=== PATIENT | female | born 1930 | race Caucasian/White ===

== ENCOUNTER 2017-07-22 17:55 | Inpatient (IN) | payer OTHER, BC ==
[~2017-07-22] VITALS: Ht 154.9 cm; Wt 61.4 kg
[~2017-07-22 17:55] MED LIST: ACET325T96 PO; ASPI81TA28 PO; DTR5 PO; FENO48TA9 PO; GABA-112 PO; LEVO125T72 PO; MULT-506 PO; SENN-61 PO; TRIA37.5 PO
[2017-07-22] MEDS ORDERED: SODIUM CHLORIDE 0.9% 1000ML 1,000 ML IV STA (18:18)
[2017-07-22] MEDS ORDERED: MULT-513 PO (18:37)
[2017-07-22] MEDS ORDERED: GABA-113 PO (18:37)
[2017-07-22] MEDS ORDERED: PRLSR20 PO (18:37)
[2017-07-22] MEDS ORDERED: LEVO88TA PO (18:37)
[2017-07-22] MEDS ORDERED: CLR10 PO (18:37)
[2017-07-22] MEDS ORDERED: [UNRECOGNIZED DRUG - CODE] PO (18:37)
[2017-07-22] MEDS ORDERED: ACET1TAB84 PO (18:39)
[2017-07-22 18:55] LABS: BASO % 0.7 %; BASO ABS # 0.06 K/uL (0-0.2); COMPLETE YES; EOS % 3.3 %; HEMATOCRIT 37.5 % (37-47); IG% 0.2 %; LYMPH % 30.2 %; LYMPH ABS # 2.59 K/uL (1.2-3.4); MEAN CELL VOLUME 82.6 fL (80-100); MEAN CORPUSCULAR HGB CONC 36.3 g/dl (32-36); MEAN PLATELET VOLUME 8.6 fL (7.4-10.4); NEUT % 58.6 %; PLATELET COUNT 266 K/uL (130-400); RED BLOOD COUNT 4.54 M/uL (4.2-5.4); WHITE BLOOD COUNT 8.58 K/uL (4.8-10.8)
[2017-07-22 19:09] LABS: URINE APPEARANCE CLEAR (CLEAR); URINE BILIRUBIN NEG (NEG); URINE COLOR YELLOW; URINE NITRITE NEG (NEG); URINE SPECIFIC GRAVITY 1.011 (1.000-1.030); UROBILINOGEN NEG (NEG)
[2017-07-22 19:12] LABS: INR 1.1 (0.9-1.1); PARTIAL THROMBOPLASTIN RATIO 1.1; PROTHROMBIN TIME (PATIENT) 11.7 SECONDS (9.0-12.0)
--- NOTE | 2017-07-22 19:13 | DIAGNOSTIC IMAGING REPORT ---
SINGLE VIEW CHEST CLINICAL HISTORY: Generalized weakness. FINDINGS: An AP, portable, upright chest radiograph is compared to study dated 05/31/2017. The examination is degraded by portable technique and patient rotation. The cardiomediastinal silhouette is unremarkable. There is atherosclerotic calcification of the thoracic aorta. Chronic interstitial thickening is similar to previous. No airspace consolidation or pleural effusion is identified. No pneumothorax is seen. The skeletal structures are osteopenic. The bony thorax is grossly intact. IMPRESSION: No acute cardiopulmonary abnormality. Electronically signed by: Juanito Aburto M.D. 07/22/2017 7:12 PM Dictated Date/Time: 07/22/2017 7:11 PM
[2017-07-22 19:19] LABS: MANUAL MICROSCOPIC REQUIRED? NO; REVIEW REQ? NO
--- NOTE | 2017-07-22 19:19 | EMERGENCY ROOM VISIT NOTE ---
History Report prepared by Nissa: Jeronimo Kumar Under the Supervision of: Dr. Romel Henderson M.D. First contact with patient: 17:57 Stated Complaint: PALPITATIONS History of Present Illness The patient is a 87 year old female who presents to the Emergency Room with complaints of resolved chest pain that started at 1630. The patient is accompanied by her daughter who states that she saw the patient yesterday and the patient seemed fine. The patient states that she was getting ready for dinner at [facility] when she developed chest pain. She reports that she also started to experience shortness of breath and heart palpitations. The patient states that she was sent to the ED by one of the nurses at [facility]. Per EMS, the patient's heart rate was in the 150s, but that it resolved and then she had a normal sinus rhythm with a regular rate. She reports that she has a history of heart problems. Pt denies LOC, headache, fevers, chills, diaphoresis, visual changes, neck pain, nausea, vomiting, abdominal pain, back pain, melena, hematochezia, urinary symptoms, numbness, weakness, lymphadenopathy, rash, or other complaints. Source of History: patient, EMS Onset: 1630 Position: chest Timing: resolved Associated Symptoms: + SOB, No nausea, No vomiting, No abdominal pain, No diarrhea Note: Associated symptoms: heart palpitations Review of Systems See HPI for pertinent positives and negatives. A total of ten systems were reviewed and were otherwise negative. Past Medical & Surgical Medical Problems: (1) Asthma (2) CVA (3) HTN (hypertension) (4) Palpitations (5) UTI (urinary tract infection) Family History Patient reports no known family medical history. Social History Smoking Status: Never Smoker Marital Status: Housing Status: other Occupation Status: retired Current/Historical Medications Scheduled Acetaminophen (Tylenol Arthritis Ext Rel), 650 MG PO BID Aspirin (Aspirin Ec), 81 MG PO DAILY Fenofibrate (Tricor), 48 MG PO HS Gabapentin (Neurontin), 100 MG PO BID Gabapentin (Neurontin), 300 MG PO HS Inulin (Fiber Choice Prebiotic Fi), 1 TAB PO HS Levothyroxine Sodium (Synthroid), 88 MCG PO DAILY Loratadine (Claritin), 10 MG PO DAILY Multivitamins/Minerals (Mvi With Minerals), 1 TAB PO DAILY Omeprazole (Prilosec), 20 MG PO QAM PRIOR BREAKFAST Oxybutynin Chloride (Oxybutynin Chloride), 5 MG PO BID Triamterene/Hctz (Dyazide 37.5MG/25MG), 1 TAB PO DAILY Scheduled PRN Acetaminophen Tab (Tylenol), 650 MG PO Q8 PRN for Pain or Fever Senna (Senokot), 1 TAB PO DAILY PRN for Constipation Allergies Coded Allergies: Adhesives (Verified Allergy, Intermediate, SKIN IRRITATION, 07/22/17) Physical Exam Vital Signs Date Time Temp Pulse Resp B/P (MAP) Pulse Ox O2 Delivery O2 Flow Rate FiO2 07/22/17 20:04 72 16 181/81 96 Room Air 07/22/17 18:30 Room Air 07/22/17 18:11 70 07/22/17 18:09 97 Room Air 07/22/17 18:06 36.7 64 22 168/82 98 Room Air 07/22/17 18:03 98 Room Air Physical Exam GENERAL: Awake, alert, well-appearing, in no distress HENT: Normocephalic, atraumatic. Oropharynx unremarkable. EYES: Normal conjunctiva. Sclera non-icteric. NECK: Supple. No nuchal rigidity. FROM. No JVD. RESPIRATORY: Clear to auscultation. CARDIAC: Regular rate, normal rhythm. Extremities warm and well perfused. Pulses equal. ABDOMEN: Soft, non-distended. No tenderness to palpation. No rebound or guarding. No masses. RECTAL: Deferred. MUSCULOSKELETAL: Chest examination reveals no tenderness. The back is symmetrical on inspection without obvious abnormality. There is no CVA tenderness to palpation. No joint edema. LOWER EXTREMITIES: Calves are equal size bilaterally and non-tender. No edema. No discoloration. NEURO: Normal sensorium. No sensory or motor deficits noted. SKIN: No rash or jaundice noted. Medical Decision & Procedures ER Provider Diagnostic Interpretation: X-ray: Per my interpretation, radiologist review. SINGLE VIEW CHEST CLINICAL HISTORY: Generalized weakness. FINDINGS: An AP, portable, upright chest radiograph is compared to study dated 05/31/2017. The examination is degraded by portable technique and patient rotation. The cardiomediastinal silhouette is unremarkable. There is atherosclerotic calcification of the thoracic aorta. Chronic interstitial thickening is similar to previous. No airspace consolidation or pleural effusion is identified. No pneumothorax is seen. The skeletal structures are osteopenic. The bony thorax is grossly intact. IMPRESSION: No acute cardiopulmonary abnormality. Electronically signed by: Juanito Aburto M.D. 07/22/2017 7:12 PM Dictated Date/Time: 07/22/2017 7:11 PM Laboratory Results 07/22/17 18:30 Red Blood Count 4.54, Mean Corpuscular Volume 82.6, Mean Corpuscular Hemoglobin 30.0, Mean Corpuscular Hemoglobin Concent 36.3, Mean Platelet Volume 8.6, Neutrophils (%) (Auto) 58.6, Lymphocytes (%) (Auto) 30.2, Monocytes (%) (Auto) 7.0, Eosinophils (%) (Auto) 3.3, Basophils (%) (Auto) 0.7, Neutrophils # (Auto) 5.03, Lymphocytes # (Auto) 2.59, Monocytes # (Auto) 0.60, Eosinophils # (Auto) 0.28, Basophils # (Auto) 0.06 07/22/17 18:30 Test 07/22/17 00:00 07/22/17 18:30 Urine Color YELLOW Urine Appearance CLEAR (CLEAR) Urine pH 8.0 (4.5-7.5) Urine Specific [place] 1.011 (1.000-1.030) Urine Protein NEG (NEG) Urine Glucose (UA) NEG (NEG) Urine Ketones NEG (NEG) Urine Occult Blood NEG (NEG) Urine Nitrite NEG (NEG) Urine Bilirubin NEG (NEG) Urine Urobilinogen NEG (NEG) Urine Leukocyte Esterase SMALL (NEG) Urine WBC (Auto) 10-30 /hpf (0-5) Urine RBC (Auto) 0-4 /hpf (0-4) Urine Hyaline Casts (Auto) 0 /lpf (0-5) Urine Epithelial Cells (Auto) 5-10 /lpf (0-5) Urine Bacteria (Auto) 4+ (NEG) White Blood Count 8.58 K/uL (4.8-10.8) Red Blood Count 4.54 M/uL (4.2-5.4) Hemoglobin 13.6 g/dL (12.0-16.0) Hematocrit 37.5 % (37-47) Mean Corpuscular Volume 82.6 fL (80-100) Mean Corpuscular Hemoglobin 30.0 pg (25-34) Mean Corpuscular Hemoglobin Concent 36.3 g/dl (32-36) Platelet Count 266 K/uL (130-400) Mean Platelet Volume 8.6 fL (7.4-10.4) Neutrophils (%) (Auto) 58.6 % Lymphocytes (%) (Auto) 30.2 % Monocytes (%) (Auto) 7.0 % Eosinophils (%) (Auto) 3.3 % Basophils (%) (Auto) 0.7 % Neutrophils # (Auto) 5.03 K/uL (1.4-6.5) Lymphocytes # (Auto) 2.59 K/uL (1.2-3.4) Monocytes # (Auto) 0.60 K/uL (0.11-0.59) Eosinophils # (Auto) 0.28 K/uL (0-0.5) Basophils # (Auto) 0.06 K/uL (0-0.2) RDW Standard Deviation 39.7 fL (36.4-46.3) RDW Coefficient of Variation 13.1 % (11.5-14.5) Immature Granulocyte % (Auto) 0.2 % Immature Granulocyte # (Auto) 0.02 K/uL (0.00-0.02) Prothrombin Time 11.7 SECONDS (9.0-12.0) Prothromb Time International Ratio 1.1 (0.9-1.1) Activated Partial Thromboplast Time 28.0 SECONDS (21.0-31.0) Partial Thromboplastin Ratio 1.1 Anion Gap 8.0 mmol/L (3-11) Est Creatinine Clear Calc Drug Dose 37.8 ml/min Estimated GFR () 58.4 Estimated GFR (Non- 50.4 BUN/Creatinine Ratio 15.5 (10-20) Calcium Level 9.0 mg/dl (8.5-10.1) Magnesium Level 1.9 mg/dl (1.8-2.4) Total Bilirubin 0.4 mg/dl (0.2-1) Direct Bilirubin 0.1 mg/dl (0-0.2) Aspartate Amino Transf (AST/SGOT) 26 U/L (15-37) Alanine Aminotransferase (ALT/SGPT) 24 U/L (12-78) Alkaline Phosphatase 66 U/L (45-117) Total Creatine Kinase 245 U/L (26-192) Creatine Kinase MB 3.6 ng/ml (0.5-3.6) Creatine Kinase MB Ratio 1.5 (0-3.0) Troponin I < 0.015 ng/ml (0-0.045) Total Protein 7.0 gm/dl (6.4-8.2) Albumin 4.1 gm/dl (3.4-5.0) Thyroid Stimulating Hormone (TSH) 3.350 uIu/ml (0.300-4.500) Laboratory results reviewed by me Medications Administered Medications (Trade) Dose Ordered Sig/Amina Route Start Time Stop Time Status Last Admin Dose Admin Sodium Chloride 1,000 ml @ 125 mls/hr Q8H STAT IV 07/22/17 18:18 07/22/17 22:58 DC 07/22/17 18:18 125 MLS/HR Ceftriaxone Sodium (Rocephin Inj) 1 gm NOW STAT IV 07/22/17 20:13 07/22/17 20:14 DC 07/22/17 20:17 1 GM ECG Indication: chest pain Rate (beats per minute): 62 Rhythm: normal sinus Findings: no acute ischemic change, no ectopy Change: Pre-hospital: Sinus rhythm with a rate of 64 ED Course 1813: The patient was evaluated in room B02. A complete history and physical exam was performed. 1817: Ordered Sodium Chloride 1000 ml @ 125 mls/hr IV. 2010: I reevaluated the patient and updated her on her results. I discussed the treatment plan and she agrees. The patient will be further evaluated. 2012: Ordered Rocephin Injection 1 gm IV. 2030: I discussed the patients case with Dr. Monroe, [facility] Hospitalist. He understands the patients condition and agrees to accept the patient. The patient will be further evaluated. Medical Decision Prior records/ancillary studies reviewed. Triage Nursing notes reviewed and agree them. Additional history obtained from the family. The patient's history was concerning for palpitations, chest discomfort and a tachycardia that resolved. Differential diagnosis: Etiologies such as electrolyte abnormality, cardiac dysrhythmia, thyroid dysfunction, pulmonary embolism, infection, gastrointestinal, as well as others were entertained. Physical examination: Benign as above. ER treatment provided: Cardiac monitoring. Saline hydration IV Rocephin On reassessment the patient felt better. Diagnostic interpretation by me: The electrocardiogram was negative for pathologic change. The labs revealed an unremarkable CBC but the patient has hyponatremia on chemistry panel. Urinalysis is concerning for infection. Imaging studies: Chest x-ray as above. Consultation: A consultation was placed with the hospitalist. The case was discussed and diagnostics were reviewed. The patient was evaluated in the ER for further treatment. Medication Reconcilliation Current Medication List: was personally reviewed by me Blood Pressure Screening Patient's blood pressure: Elevated blood pressure Blood pressure disposition: Referred to PCP Consults Time Called: 2030 Consulting Physician: Dr. Monroe [facility] Hospitalist Returned Call: 2030 I discussed the patients case with Dr. Monroe [facility] Hospitalist. He understands the patients condition and agrees to accept the patient. The patient will be further evaluated. Impression Primary Impression: Hyponatremia Additional Impressions: UTI (urinary tract infection) Tachycardia Scribe Attestation The scribe's documentation has been prepared under my direction and personally reviewed by me in its entirety. I confirm that the note above accurately reflects all work, treatment, procedures, and medical decision making performed by me. Departure Information Dispostion Being Evaluated By Hospitalist Referrals Aurora Loya C.R.N.P. (PCP) Problem Qualifiers
[2017-07-22 19:30] LABS: ALT/SGPT 24 U/L (12-78); AST/SGOT 26 U/L (15-37); BLOOD UREA NITROGEN 16 mg/dl (7-18); BUN/CREATININE RATIO 15.5 (10-20); CARBON DIOXIDE 25 mmol/L (21-32); CHLORIDE 91 mmol/L (98-107); CREATININE 1.01 mg/dl (0.60-1.20); GLUCOSE 88 mg/dl (70-99); MAGNESIUM 1.9 mg/dl (1.8-2.4); POTASSIUM 3.6 mmol/L (3.5-5.1); SODIUM 124 mmol/L (136-145)
[2017-07-22 19:41] LABS: ALKALINE PHOSPHATASE 66 U/L (45-117); CKMB/CK RATIO 1.5 (0-3.0)
[2017-07-22] MEDS ORDERED: CEFTRIAXONE SOD INJ 1 GM ADDVIAL IV STA (20:13)
[2017-07-22] MEDS ORDERED: SENNA 8.6 MG TAB PO PRN (21:30)
[2017-07-22] MEDS ORDERED: ONDANSETRON 8MG OD TAB PO PRN (21:30)
[2017-07-22] MEDS ORDERED: ACETAMINOPHEN 325 MG TAB PO PRN ×2 (21:30)
[2017-07-22 21:40] VITALS: O2SAT 96
[2017-07-22 23:00] VITALS: BP 164/71; PULSE 76; TEMP 36.3; Ht 154.9 cm; Wt 61.4 kg
--- NOTE | 2017-07-22 23:04 | History and Physical ---
History & Physical Date & Time of Service: Jul 22, 2017 at 23:04 Chief Complaint: Palpitations, Uti Primary Care Physician: Aurora Loya, StephanieRGhadaNGhadaPGhada History of Present Illness Source: patient, hospital records The patient is an 87-year-old female resident of [facility], who presents to the emergency department with an episode of chest pain that started at 1630 hrs. and resolved without intervention prior to arrival. She also noted palpitations at that time and shortness of breath, and EMS notes a heart rate in the low 150s when they arrived, but that resolved prior to being recorded. The patient has baseline dementia, and is somewhat able to contribute to her history of present illness, but when she is fatigued as during my assessment, she becomes forgetful about what she was saying at that time and said before. Her daughter is present in the room, and is able to corroborate the above story. Past Medical/Surgical History Medical Problems: (1) Asthma Status: Chronic (2) CVA Status: Resolved (3) HTN (hypertension) Status: Chronic (4) UTI (urinary tract infection) Status: Resolved Family History Patient reports no known family medical history. Social History Smoking Status: Never Smoker Smokeless Tobacco Use: No Alcohol Use: none Drug Use: none Marital Status: Occupational Status: retired Immunizations History of Influenza Vaccine: Unknown History of Tetanus Vaccine?: Unknown History of Pneumococcal: Unknown History of Hepatitis B Vaccine: Unknown Multi-Drug Resistant Organisms History of MDRO: No Allergies Coded Allergies: Adhesives (Verified Allergy, Intermediate, SKIN IRRITATION, 07/22/17) Home Medications Scheduled Acetaminophen (Tylenol Arthritis Ext Rel), 650 MG PO BID Aspirin (Aspirin Ec), 81 MG PO DAILY Fenofibrate (Tricor), 48 MG PO HS Gabapentin (Neurontin), 100 MG PO BID Gabapentin (Neurontin), 300 MG PO HS Inulin (Fiber Choice Prebiotic Fi), 1 TAB PO HS Levothyroxine Sodium (Synthroid), 88 MCG PO DAILY Loratadine (Claritin), 10 MG PO DAILY Multivitamins/Minerals (Mvi With Minerals), 1 TAB PO DAILY Omeprazole (Prilosec), 20 MG PO QAM PRIOR BREAKFAST Oxybutynin Chloride (Oxybutynin Chloride), 5 MG PO BID Triamterene/Hctz (Dyazide 37.5MG/25MG), 1 TAB PO DAILY Scheduled PRN Acetaminophen Tab (Tylenol), 650 MG PO Q8 PRN for Pain or Fever Senna (Senokot), 1 TAB PO DAILY PRN for Constipation Review of Systems The patient denies cough, sore throat, fevers, chills, sweats, nausea, vomiting , diarrhea or constipation, abdominal pain, pelvic pain, blood in urine or stool, dysuria, urinary frequency or urgency, loss of consciousness, rash, abnormal bruising or bleeding, focal weakness, numbness or tingling in arms or legs, generalized arthralgias or myalgias, back or neck pain, or night sweats. The review of systems is otherwise negative other than for that already noted above, and at least 10 systems have been reviewed. Physical Exam Vital Signs Date Time Temp Pulse Resp B/P (MAP) Pulse Ox O2 Delivery O2 Flow Rate FiO2 07/22/17 21:40 68 16 174/72 96 Room Air 07/22/17 20:04 72 16 181/81 96 Room Air 07/22/17 18:30 Room Air 07/22/17 18:11 70 07/22/17 18:09 97 Room Air 07/22/17 18:06 36.7 64 22 168/82 98 Room Air 07/22/17 18:03 98 Room Air The patient is awake, alert and oriented 3 until fatigued, normocephalic and atraumatic, lying in bed and in no acute distress. HEENT--PERRL, EOMI, mucous membranes and oropharynx dry, and face appears flushed. Neck--supple, no JVD or bruits, thyroid normal, trachea midline, no adenopathy. Heart--normal S1 and S2, no extra beats, no murmurs, rubs or gallops. Lungs--decreased breath sounds at the bases bilaterally, no respiratory distress , no accessory muscle use. Abdomen--normal bowel sounds and soft, nontender and nondistended, no hernias or masses, no organomegaly. Extremities--no cyanosis, clubbing or edema. There are good distal pulses b/l. Dermatologic--normal skin turgor, normal color, warm and dry, no abnormal lymph nodes, except as above. Neurologic--cranial nerves II through XII grossly intact. Rheumatologic--normal range of motion. Psychiatric--intermittently confused, in particular when fatigued Diagnostics Laboratory Results Results Past 24 Hours Test 07/22/17 00:00 07/22/17 18:30 Range/Units Urine Color YELLOW Urine Appearance CLEAR CLEAR Urine pH 8.0 4.5-7.5 Urine Specific [place] 1.011 1.000-1.030 Urine Protein NEG NEG Urine Glucose (UA) NEG NEG Urine Ketones NEG NEG Urine Occult Blood NEG NEG Urine Nitrite NEG NEG Urine Bilirubin NEG NEG Urine Urobilinogen NEG NEG Urine Leukocyte Esterase SMALL NEG Urine WBC (Auto) 10-30 0-5 /hpf Urine RBC (Auto) 0-4 0-4 /hpf Urine Hyaline Casts (Auto) 0 0-5 /lpf Urine Epithelial Cells (Auto) 5-10 0-5 /lpf Urine Bacteria (Auto) 4+ NEG White Blood Count 8.58 4.8-10.8 K/uL Red Blood Count 4.54 4.2-5.4 M/uL Hemoglobin 13.6 12.0-16.0 g/dL Hematocrit 37.5 37-47 % Mean Corpuscular Volume 82.6 80-100 fL Mean Corpuscular Hemoglobin 30.0 25-34 pg Mean Corpuscular Hemoglobin Concent 36.3 32-36 g/dl Platelet Count 266 130-400 K/uL Mean Platelet Volume 8.6 7.4-10.4 fL Neutrophils (%) (Auto) 58.6 % Lymphocytes (%) (Auto) 30.2 % Monocytes (%) (Auto) 7.0 % Eosinophils (%) (Auto) 3.3 % Basophils (%) (Auto) 0.7 % Neutrophils # (Auto) 5.03 1.4-6.5 K/uL Lymphocytes # (Auto) 2.59 1.2-3.4 K/uL Monocytes # (Auto) 0.60 0.11-0.59 K/uL Eosinophils # (Auto) 0.28 0-0.5 K/uL Basophils # (Auto) 0.06 0-0.2 K/uL RDW Standard Deviation 39.7 36.4-46.3 fL RDW Coefficient of Variation 13.1 11.5-14.5 % Immature Granulocyte % (Auto) 0.2 % Immature Granulocyte # (Auto) 0.02 0.00-0.02 K/uL Prothrombin Time 11.7 9.0-12.0 SECONDS Prothromb Time International Ratio 1.1 0.9-1.1 Activated Partial Thromboplast Time 28.0 21.0-31.0 SECONDS Partial Thromboplastin Ratio 1.1 Sodium Level 124 136-145 mmol/L Potassium Level 3.6 3.5-5.1 mmol/L Chloride Level 91 98-107 mmol/L Carbon Dioxide Level 25 21-32 mmol/L Anion Gap 8.0 3-11 mmol/L Blood Urea Nitrogen 16 7-18 mg/dl Creatinine 1.01 0.60-1.20 mg/dl Est Creatinine Clear Calc Drug Dose 37.8 ml/min Estimated GFR () 58.4 Estimated GFR (Non- 50.4 BUN/Creatinine Ratio 15.5 10-20 Random Glucose 88 70-99 mg/dl Calcium Level 9.0 8.5-10.1 mg/dl Magnesium Level 1.9 1.8-2.4 mg/dl Total Bilirubin 0.4 0.2-1 mg/dl Direct Bilirubin 0.1 0-0.2 mg/dl Aspartate Amino Transf (AST/SGOT) 26 15-37 U/L Alanine Aminotransferase (ALT/SGPT) 24 12-78 U/L Alkaline Phosphatase 66 45-117 U/L Total Creatine Kinase 245 26-192 U/L Creatine Kinase MB 3.6 0.5-3.6 ng/ml Creatine Kinase MB Ratio 1.5 0-3.0 Troponin I < 0.015 0-0.045 ng/ml Total Protein 7.0 6.4-8.2 gm/dl Albumin 4.1 3.4-5.0 gm/dl Thyroid Stimulating Hormone (TSH) 3.350 0.300-4.500 uIu/ml Diagnostic Radiology Patient Name: TAJ MCKINLEY Unit Number: [id number] Dictated: 07/22/171910 Transcribed: 07/22/171910 EV Printed Date/Time: [~ rep prt dt]/[~ rep prt tm] [~ rep ct labl] - [~ rep ct ivnm] [facility] [place] [address] Dictated: 07/22/171910 Transcribed: 07/22/171910 EV Printed Date/Time: [~ rep prt dt]/[~ rep prt tm] [~ rep ct labl] - [~ rep ct ivnm] [~ rep ct add3]] SINGLE VIEW CHEST CLINICAL HISTORY: Generalized weakness. FINDINGS: An AP, portable, upright chest radiograph is compared to study dated 05/31/2017. The examination is degraded by portable technique and patient rotation. The cardiomediastinal silhouette is unremarkable. There is atherosclerotic calcification of the thoracic aorta. Chronic interstitial thickening is similar to previous. No airspace consolidation or pleural effusion is identified. No pneumothorax is seen. The skeletal structures are osteopenic. The bony thorax is grossly intact. IMPRESSION: No acute cardiopulmonary abnormality. Electronically signed by: Juanito Aburto M.D. 07/22/2017 7:12 PM Dictated Date/Time: 07/22/2017 7:11 PM The status of this report is Signed. Draft = Not yet reviewed or approved by Radiologist. Signed = Reviewed and approved by Radiologist. <AttendingPhy></AttendingPhy> <FamilyPhy>Aurora Loya, C.R.N.P.</FamilyPhy > <PrimaryPhy>Aurora Loya, C.R.N.P.</PrimaryPhy> <UnitNumber>[id number]</ UnitNumber> <VisitNumber>[id number]</VisitNumber> <PatientName>TAJ MCKINLEY</PatientName> <DateOfBirth>1930</DateOfBirth> <Location>[facility]</ Location> <ServiceDate>07/22/17</ServiceDate> <MNE>ESINDLuke</MNE> <OrderingPhy> Romel Henderson MD</OrderingPhy> <OrderingPhyMNE>f rep ord dr aponte</ OrderingPhyMNE> <DictatingPhyMNE>f rep dict dr aponte</DictatingPhyMNE> <CCListMNE> f rep ct albertoe</CCListMNE> <AdmittingPhyMNE>f pt admit dr aponte</AdmittingPhyMNE> < AttendingPhyMNE>f pt attend dr aponte</AttendingPhyMNE> <ConsultingPhyMNE>f pt consult dr aponte</ConsultingPhyMNE> <FamilyPhyMNE>f pt fam dr aponte</FamilyPhyMNE> <OtherPhyMNE>f pt other dr aponte</OtherPhyMNE> < PrimaryPhyMNE>f pt prim care dr aponte</PrimaryPhyMNE> <ReferringPhyMNE>f pt referring dr aponte</ReferringPhyMNE> EKG EKG shows normal sinus rhythm at 62 bpm, no acute ST-T changes, and no change compared to 05/31/2017 Impression Assessment and Plan Chest pain/shortness of breath/palpitations/unrecorded heart rate in the 150s-- The patient will be admitted to telemetry for serial cardiac enzymes, cardiac rhythm monitoring and a 2-D echocardiogram with Dopplers. The patient reports having had one previous episode of rapid heart rate a number of years ago. Continue aspirin. Hold Dyazide Hyponatremia-- Check a serum and urine osmolality Start normal saline with potassium chloride 20 mEq at 50 ML's per hour UTI-- Start ceftriaxone 1 g IV daily Follow urine culture and sensitivity. Hypothyroidism-- Continue levothyroxine sodium 88 g by mouth daily GERD-- Change omeprazole to pantoprazole 40 mg by mouth daily Peripheral neuropathy-- Continue gabapentin 100 mg by mouth twice a day and 300 milligrams by mouth at bedtime Hypertriglyceridemia-- Continue fenofibrate 48 mg by mouth at bedtime Urinary bladder spasm-- Continue oxybutynin 5 mg by mouth twice a day Allergic rhinitis-- Continue loratadine 10 mg by mouth daily Level of Care Telemetry Advanced Directives Existing Advance Directive: No Existing Living Will: No Existing Power of Technology Professional: No Resuscitation Status FULL RESUSCITATION VTE Prophylaxis VTE Risk Assessment Done? Y/N: Yes Risk Level: Moderate Given or contraindicated: Enoxaparin (Lovenox)SQ, SCD's
[2017-07-22] MEDS ORDERED: NSS + 20MEQ KCL 1000ML 1,000 ML IV SCH (23:15)
[2017-07-23] MEDS ORDERED: PNEUMOCOCCAL ADMINISTRATION CHARGE ONE (00:45)
[2017-07-23] MEDS ORDERED: PNEUMOCOCCAL POLYSACCHARIDES 25 MCG/0.5 ML VIAL/SYR IM. ONE (00:45)
[2017-07-23 03:30] VITALS: BP 167/76; PULSE 62; TEMP 36.7; O2SAT 95
[2017-07-23 06:12] LABS: BASO % 0.8 %; BASO ABS # 0.06 K/uL (0-0.2); COMPLETE YES; EOS % 2.3 %; HEMATOCRIT 40.3 % (37-47); IG% 0.4 %; LYMPH ABS # 1.24 K/uL (1.2-3.4); MEAN CELL VOLUME 84.1 fL (80-100); MEAN CORPUSCULAR HEMOGLOBIN 29.6 pg (25-34); MEAN CORPUSCULAR HGB CONC 35.2 g/dl (32-36); MEAN PLATELET VOLUME 8.7 fL (7.4-10.4); MONO % 8.1 %; NEUT % 71.4 %; PLATELET COUNT 265 K/uL (130-400); RED BLOOD COUNT 4.79 M/uL (4.2-5.4); WHITE BLOOD COUNT 7.29 K/uL (4.8-10.8)
[2017-07-23 06:18] LABS: INR 1.1 (0.9-1.1); PARTIAL THROMBOPLASTIN RATIO 1.1; PROTHROMBIN TIME (PATIENT) 11.6 SECONDS (9.0-12.0)
[2017-07-23] MEDS ORDERED: LEVOTHYROXINE 88 MCG TAB PO SCH (06:30)
[2017-07-23 06:48] LABS: BLOOD UREA NITROGEN 14 mg/dl (7-18); BUN/CREATININE RATIO 16.2 (10-20); CALCIUM 9.1 mg/dl (8.5-10.1); CARBON DIOXIDE 27 mmol/L (21-32); CHLORIDE 96 mmol/L (98-107); CREATININE 0.87 mg/dl (0.60-1.20); GLUCOSE 99 mg/dl (70-99); MAGNESIUM 2.1 mg/dl (1.8-2.4); POTASSIUM 3.5 mmol/L (3.5-5.1); SODIUM 130 mmol/L (136-145)
[2017-07-23 06:55] LABS: CKMB/CK RATIO 1.5 (0-3.0)
[2017-07-23 07:34] VITALS: BP 180/77; PULSE 79; TEMP 36.6; O2SAT 96
[2017-07-23] MEDS: GABAPENTIN 100 MG CAP PO SCH ×2 (08:12→13:21)
[2017-07-23] MEDS ORDERED: OXYBUTYNIN CHLORIDE 5 MG TAB PO SCH (09:00)
[2017-07-23] MEDS ORDERED: ASPIRIN 81 MG ECTAB PO SCH (09:00)
[2017-07-23] MEDS ORDERED: PANTOprazole SOD 40 MG TAB PO SCH (09:00)
[2017-07-23] MEDS ORDERED: LORATADINE 10 MG TAB PO SCH (09:00)
[2017-07-23] MEDS ORDERED: CEROVITE ADV FORMULA TAB PO SCH (09:00)
[2017-07-23] MEDS ORDERED: ENOXAPARIN 30 MG/0.3 ML SYR SC SCH (09:00)
[2017-07-23 10:21] VITALS: BP 164/88; PULSE 74
--- NOTE | 2017-07-23 11:02 | Discharge Instructions ---
Discharge Instructions Date of Service Jul 23, 2017. Admission Reason for Admission: Palpitations, Uti Discharge Discharge Diagnosis / Problem: Urinary tract infection, palpitations Discharge Goals Goal(s): Decrease discomfort, Improve function, Increase independence, Improve disease control Activity Recommendations Activity Level: Up Ad [place] (with assistance of walker/cane) Therapies: Physical Therapy, Occupational Therapy Lifting Limitations: no more than 25 pounds, gradually increase as tolerated Exercise/Sports Limitations: as tolerated, gradually increase as tolerated Shower/Bathe: no limitations (with assistance) . Additional Information Patient informed of condition: Yes Advance Directives: No DNR: No Level of Care: Skilled Communicable Disease: No Prognosis: Stable Wetzel Catheter: No Instructions / Follow-Up Instructions / Follow-Up You were admitted to [facility] with palpitations and chest pain and confusion which resolved and diagnosed with altered mental status secondary to Urinary tract infection. Your chest pain was evaluated with blood work and was negative. Your EKG appeared normal compared to previous. Your sodium level was initially low but improved with NSS. - You should have a repeat BMP tomorrow morning to check sodium level. Continue to drink plenty of water to remain hydrated. This will also help prevent you from getting recurrent urinary tract infections. During your stay here you were treated with intravenous antibiotics for the urinary tract infection and were transitioned to oral antibiotics. Medications: Continue taking your medications as above. Continue taking Cipro 500 mg twice daily x 3 more day starting on 07/24 to complete a 5 day course. Follow up on urine culture tomorrow to determine sensitivity and adjust antibiotics as needed. Follow up: Follow up with physician at [facility] within 24-48 hours. Current Hospital Diet Patient's current hospital diet: AHA Diet (Heart Healthy) Discharge Diet Recommended Diet: AHA Diet (Heart Healthy) Pending Studies Studies pending at discharge: yes List of pending studies: Urine Culture Medical Emergencies . Who to Call and When: Medical Emergencies: If at any time you feel your situation is an emergency, please call 911 immediately. . Non-Emergent Contact Non-Emergency issues call your: Primary Care Provider Call Non-Emergent contact if: you have a fever, temperature is above 100.5, your pain is not controlled, your pain is worsening, your pain is unusual for you, your pain is concerning you, you have any medication questions other concerns with your health. Call 911 or go directly to the Emergency Department if you experience any of the following: Chest pain, chest tightness, shortness of breath, abdominal pain , lightheadedness, dizziness, gastrointestinal bleeding, or have any other concerns regarding your health. . Past History Medical & Surgical History: (1) UTI (urinary tract infection) (2) Hyponatremia (3) HTN (hypertension) . "Provider Documentation" section prepared by Lindsey Hernandez. . Core Measure Problem Core Measures: None
[2017-07-23] MEDS ORDERED: CIPR-255 PO (11:03)
[2017-07-23 11:38] VITALS: PULSE 80; TEMP 36.7; O2SAT 96
[2017-07-23] MEDS ORDERED: NURSING VERBAL MED ORDER ONE (11:45)
[2017-07-23 13:39] VITALS: BP 164/88; PULSE 80; TEMP 36.7; O2SAT 96
--- NOTE | 2017-07-23 14:46 | Discharge Summary ---
Discharge Summary Date of Service Jul 23, 2017. Discharge Summary Admission Date: Jul 22, 2017 at 21:29 Discharge Date: Jul 23, 2017 Discharge Disposition: jail facility ([facility]) Principal Diagnosis: metabolic encephalopathy d/t UTI, palpitation, chest pain Immunizations: Have You Had Influenza Vaccine: Unknown History of Tetanus Vaccine?: Unknown History of Pneumococcal: Unknown History of Hepatitis B Vaccine: Unknown Procedures: SINGLE VIEW CHEST 07/22/17 FINDINGS: An AP, portable, upright chest radiograph is compared to study dated 05/31/2017. The examination is degraded by portable technique and patient rotation. The cardiomediastinal silhouette is unremarkable. There is atherosclerotic calcification of the thoracic aorta. Chronic interstitial thickening is similar to previous. No airspace consolidation or pleural effusion is identified. No pneumothorax is seen. The skeletal structures are osteopenic. The bony thorax is grossly intact. IMPRESSION: No acute cardiopulmonary abnormality. Consultations: None Medication Reconciliation New Medications: Ciprofloxacin Hcl (Cipro) 500 Mg Tab 1 TAB PO BID for 3 Days, #6 TAB Start on 07/24, finish on 07/26 to complete 5 days Continued Medications: Acetaminophen (Tylenol Arthritis Ext Rel) 650 Mg Cplt 650 MG PO BID, CAP DO NOT EXCEED 3600 GRAMS/24 HOURS. Acetaminophen Tab (Tylenol) 325 Mg Tab 650 MG PO Q8 PRN for Pain or Fever, TAB NOT TO EXCEED 3 GRAMS/24 HOURS. Aspirin (Aspirin Ec) 81 Mg Tab 81 MG PO DAILY Fenofibrate (Tricor) 48 Mg Tab 48 MG PO HS, TAB Gabapentin (Neurontin) 100 Mg Cap 100 MG PO BID, CAP Gabapentin (Neurontin) 300 Mg Cap 300 MG PO HS, CAP Inulin (Fiber Choice Prebiotic Fi) 1.5 Gm Chw 1 TAB PO HS Levothyroxine Sodium (Synthroid) 88 Mcg Tab 88 MCG PO DAILY, TAB Loratadine (Claritin) 10 Mg Tab 10 MG PO DAILY, TAB Multivitamins/Minerals (Mvi With Minerals) Tab 1 TAB PO DAILY, TAB Omeprazole (Prilosec) 20 Mg Capcr 20 MG PO QAM PRIOR BREAKFAST, CAP Oxybutynin Chloride (Oxybutynin Chloride) 5 Mg Tab 5 MG PO BID Senna (Senokot) 8.6 Mg Tab 1 TAB PO DAILY PRN for Constipation, TAB Triamterene/Hctz (Dyazide 37.5MG/25MG) Cap 1 TAB PO DAILY, CAP Discharge Exam The patient was seen and examined this morning. Pt reports feeling well. Pt did not sleep much overnight, and is fatigued today. She denies any acute complaints and is hoping to go back to [facility]. She admits to intermittent confusion but this has been ongoing for some time. She is not sure that it's been worse in the past few days. Pt does admit that she gets recurrent UTIs and has been treated for them in the past. She reports her drinking water and hydration status has been poor recently; session was held regarding increasing oral intake of water to help prevent UTI. Patient seemed to understand, all her questions and concerns were addressed. Denies any urinary tract symptoms including burning, incontinence, retention or cramping. ROS: Constitutional: No fever, chills, sweats, fatigue or weakness Eyes: No diplopia, no changes in vision ENT: No sore throat, tinnitus, or trouble swallowing Respiratory: No shortness of breath, No dyspnea at rest or on exertion, no cough or sputum Cardiovascular: No chest pain, palpitations, or flutter Abdomen: No pain, No constipation, No diarrhea, No nausea, No vomiting Musculoskeletal: No calf pain, No joint pain, No swelling Genitourinary : As per history of present illness Neurologic: No numbness/tingling, no difficulty with ambulation- uses a cane/ walker, no sensory or motor deficits Integumentary: No itch, No rash PE: General: awake, alert, no apparent distress Head: Normocephalic, atraumatic ENT: PERRL, EOMI, no pharyngeal exudate, mucous membranes moist Chest: Clear to auscultation, on room air, no adventitious breath sounds Cardiac: Regular rate and rhythm, + systolic murmur, no JVD, normal peripheral pulses, good capillary refill Abdominal: NABS x 4 quadrants, soft, nontender to palpation, no rebound, guarding or tenderness Extremities: Normal inspection, no peripheral edema or erythema, calfs nontender to palpation Psych: Normal mood and affect Neuro: AAO x 3, patient intermittently confused with tangential speech/thought, speech is clear, no peripheral sensory deficits Hospital Course correction ischemic chest pain resolved she is a little abnormal urine patient of UTI I think so minimal that the culture later in the change antibiotics fine no culture History of Present Illness Source: patient, hospital records The patient is an 87-year-old female resident of [facility], who presents to the emergency department with an episode of chest pain that started at 1630 hrs. and resolved without intervention prior to arrival. She also noted palpitations at that time and shortness of breath, and EMS notes a heart rate in the low 150s when they arrived, but that resolved prior to being recorded. The patient has baseline dementia, and is somewhat able to contribute to her history of present illness, but when she is fatigued as during my assessment, she becomes forgetful about what she was saying at that time and said before. Her daughter is present in the room, and is able to corroborate the above story. Physical Exam The patient is awake, alert and oriented 3 until fatigued, normocephalic and atraumatic, lying in bed and in no acute distress. HEENT--PERRL, EOMI, mucous membranes and oropharynx dry, and face appears flushed. Neck--supple, no JVD or bruits, thyroid normal, trachea midline, no adenopathy. Heart--normal S1 and S2, no extra beats, no murmurs, rubs or gallops. Lungs--decreased breath sounds at the bases bilaterally, no respiratory distress , no accessory muscle use. Abdomen--normal bowel sounds and soft, nontender and nondistended, no hernias or masses, no organomegaly. Extremities--no cyanosis, clubbing or edema. There are good distal pulses b/l. Dermatologic--normal skin turgor, normal color, warm and dry, no abnormal lymph nodes, except as above. Neurologic--cranial nerves II through XII grossly intact. Rheumatologic--normal range of motion. Psychiatric--intermittently confused, in particular when fatigued Hospital course: Chest pain/shortness of breath/palpitations/unrecorded heart rate in the 150s-- The patient will be admitted to telemetry for serial cardiac enzymes were negative x 3, EKG appears stable - echo not ordered, no need to repeat at this time. - Cont ASA - BP slightly elevated at time of admission, improved, resume dyazide after discharge. - Pt asymptomatic, feels well at this time. Hyponatremia-- - Improved to 130 at time of admission, pt drinking and eating improved. She was encouraged to drink plenty of water at time of discharge. - Repeat BMP tomorrow morning to make sure sodium continues to improve - Check a serum and urine osmolality UTI-- Start ceftriaxone 1 g IV daily - pt received 2nd dose on the 07/23, will transition to cipro 500 mg BID x 3 more days to complete a 5 day course. - PCP at [facility] can follow culture sensitivity. Antibiotics can be adjusted based on sensitivity. Hypothyroidism-- Continue levothyroxine sodium 88 g by mouth daily GERD-- Change omeprazole to pantoprazole 40 mg by mouth daily Peripheral neuropathy-- Continue gabapentin 100 mg by mouth twice a day and 300 milligrams by mouth at bedtime Hypertriglyceridemia-- Continue fenofibrate 48 mg by mouth at bedtime Urinary bladder spasm-- Continue oxybutynin 5 mg by mouth twice a day Allergic rhinitis-- Continue loratadine 10 mg by mouth daily CODE STATUS: Full code Disposition: Patient to return to [facility] today PA Physician Supervision Note: I interviewed and examined the patient. Discussed with Melinda Hernandez PAC and agree with findings and plan as documented in the note. Any exceptions or clarifications are listed here: None Patient mild dementia presents with chest pain did not have any acute EKG changes or troponin changes she does have abnormal urinalysis on presentation. Daughters at bedside and updated consideration for likely UTI present on admission she'll be discharged home on 3 days of ciprofloxacin I evaluated the patient prior to going home she is in her usual state of health according to her daughter her heart was regular lungs were clear she is able to ambulate and eat she[facility] with follow-up for likely UTI POA and some noncardiac chest pain. We discussed the fact that she may consider having a cardiac evaluation and possible stress test if chest pain continues to be a persistent problem for her Documented By: Roque Monterroso Total Time Spent: Greater than 30 minutes This includes examination of the patient, discharge planning, medication reconciliation, and communication with other providers. Discharge Instructions Please refer to the electronic Patient Visit Report (Discharge Instructions) for additional information. Follow-Up Follow up with physician at [facility] within 24-48 hours. Additional Copies To Aurora Loya, [place]
[2017-07-23] MEDS ORDERED: CEFTRIAXONE SOD INJ 1 GM in DEXTROSE 5% ADD-VANTAGE 50ML 50 ML IV SCH (20:00)
[2017-07-23] MEDS ORDERED: FENOFIBRATE 48 MG TAB PO SCH (21:00)
[2017-07-23] MEDS ORDERED: GABAPENTIN 300 MG CAP PO SCH (21:00)
== END 2017-07-23 14:39 | disposition home or self-care (01) | DRG 308 ==
LOC: EDBD 17:55 → C.EDB 17:55 → C.MED 21:29 → ENRESERV 21:44
PROVIDERS: ADMIT Hospitalist; ATTEND Hospitalist
DX: R00.2 Palpitations (principal); G93.41 Metabolic encephalopathy; N39.0 Urinary tract infection, site not specified; E87.1 Hypo-osmolality and hyponatremia; R07.9 Chest pain, unspecified; R00.0 Tachycardia, unspecified; R06.02 Shortness of breath; N32.89 Other specified disorders of bladder; E03.9 Hypothyroidism, unspecified; K21.9 Gastro-esophageal reflux disease without esophagitis; E78.1 Pure hyperglyceridemia; G62.9 Polyneuropathy, unspecified; J30.9 Allergic rhinitis, unspecified; F03.90 Unspecified dementia, unspecified severity, without behavioral disturbance, psychotic disturbance, mood disturbance, and anxiety; Z86.73 Personal history of transient ischemic attack (TIA), and cerebral infarction without residual deficits; Z79.82 Long term (current) use of aspirin; Z79.899 Other long term (current) drug therapy

== ENCOUNTER → 2017-08-27 | Outpatient (CLI) | payer OTHER, BC ==
[~2017-08-27] MED LIST changes: +ACET1TAB84 PO; +CIPR-255 PO; +CLR10 PO; +GABA-113 PO; -LEVO125T72 PO; +LEVO88TA PO; -MULT-506 PO; +MULT-513 PO; +PRLSR20 PO; +[UNRECOGNIZED DRUG - CODE] PO
[2017-08-27 12:12] LABS: HEMATOCRIT 41.8 % (37-47); HEMOGLOBIN 14.7 g/dL (12.0-16.0); MEAN CELL VOLUME 85.1 fL (80-100); MEAN CORPUSCULAR HEMOGLOBIN 29.9 pg (25-34); MEAN CORPUSCULAR HGB CONC 35.2 g/dl (32-36); MEAN PLATELET VOLUME 8.9 fL (7.4-10.4); PLATELET COUNT 328 K/uL (130-400); RED CELL DISTRIBUTION WIDTH CV 13.4 % (11.5-14.5); RED CELL DISTRIBUTION WIDTH SD 41.4 fL (36.4-46.3); WHITE BLOOD COUNT 7.97 K/uL (4.8-10.8)
[2017-08-27 12:36] LABS: BLOOD UREA NITROGEN 18 mg/dl (7-18); GLUCOSE 101 mg/dl (70-99)
[2017-08-27 12:37] LABS: ALBUMIN 4.4 gm/dl (3.4-5.0); CALCIUM 9.7 mg/dl (8.5-10.1); CARBON DIOXIDE 27 mmol/L (21-32); PHOSPHORUS 3.2 mg/dl (2.5-4.9); POTASSIUM 3.9 mmol/L (3.5-5.1); SODIUM 127 mmol/L (136-145)
== END | disposition home or self-care (01) ==
LOC: C.LAB1850 10:08
PROVIDERS: ATTEND Internal Medicine Nephrology
DX: E87.1 Hypo-osmolality and hyponatremia (principal); E83.52 Hypercalcemia; E55.9 Vitamin D deficiency, unspecified